=== PATIENT | female | born 1965 | race Caucasian/White ===

== ENCOUNTER 2018-01-11 10:45 | Outpatient (REF) | payer MEDICAID, SELFPAY ==
--- NOTE | 2018-01-11 10:45 | ENDOMET_PTH ---
PATIENT: Ca Hopkins LOC: [facility] U#:[id number] AGE/SX: 52/F ROOM: RE01/11/[address]: Bari Ontiveros : 1965 BED: DIS: 01/11/2018 SPEC #: [id number] RECD: 01/12/18 12:44 STATUS: GARRY REQ #: [id number] MARY: 01/11/18 10:[address]: Bari Ontiveros DEPT: Surgical Specimen RECD BY: Meghann Reaves Tissues: 1 - ENDOMETRIUM BX/LEIF Procedures: GROSS AND MICRO LEVEL 4 Comments: [id number]
[2018-01-13 14:22] LABS: Chlamydia Result Negative; GC Result Negative; Specimen Description CERVIX
== END 2018-01-11 11:05 ==
LOC: NCHCN 10:45
PROVIDERS: PCP Family Medicine; Visit Provider Family Medicine
DX: N93.9 Abnormal uterine and vaginal bleeding, unspecified (principal); Z11.3 Encounter for screening for infections with a predominantly sexual mode of transmission; R82.90 Unspecified abnormal findings in urine; N85.8 Other specified noninflammatory disorders of uterus
CPT/HCPCS: 87077; 87491; 87591; 88305; 87086; 87186

== ENCOUNTER 2018-07-25 06:14 | Day surgery (SDC) | payer MEDICAID, SELFPAY ==
--- NOTE | 2018-07-25 06:29 | W.COLOREPORT ---
Date of service: 07/25/18 Time of Service: 07:20 Colonoscopy Report Date of procedure: 07/25/18 Pre-op diagnosis general: Colon Cancer Screening Post-op diagnosis procedure note: other (Colorectal polyp) Procedure: Colonoscopy with polypectomy by snare Surgeon: Pily Herr Anesthesia proc note operative: other (General/ ASA 2/Prasanna Keith CRNA) Estimated blood loss (mL): 3 Pathology: other (Transverse polyp) Complications: None Disposition: same day Indications: Mrs. Hopkins is a pleasant 52 year old female who was seen in the office for a screening colonoscopy. She has no family history of colon cancer. Risks, benefits and complications have been reviewed. Complications include but are not limited to bleeding, pain, perforation, missed small lesion/polyp, sore throat, aspiration and adverse reaction to the medications. Questions were entertained and answered to their satisfaction and they wished to proceed. No guarantees were given or implied. Prep: Miralax/Dulcolax Procedure Start Time: 07:20 Procedure End Time: 07:49 Retraction Time: 16 minutes Findings: One sessile polyp in the transverse colon. Retained fiber in her right colon which made it challenging to see the cecum. Irrigation was used to see the cecum Procedure Description: After informed consent was obtained the patient was taken to the procedure room and placed in a left decubitous position. Monitors were applied and a time out was done. The patients name, date of , procedure, allergies to medications and metal in their body was reviewed. The patient was then sedated. Once sedated and comfortable a rectal exam was done. External exam was normal. Internal exam revealed a normal sphincter tone and no palpable masses. The scope was then introduced and retro-flexed. No internal hemorrhoids were identified. There were no polyps or masses in the rectum. The scope was then advanced to the cecum without difficulty. The TI and appendiceal orifice were identified. The prep was adequate except for retained fiber in the cecum. The scope was then slowly retracted over 16 minutes back into the rectum. Polyps were removed with a cold snare in the Transverse colon. The scope was removed and the patient was woken up and taken back to Same day surgery in stable condition. The patient tolerated the procedure well and there were no immediate complications. Follow up: The patient should follow up in 3-5 years unless they develop changes in bowel habits or other new gastrointestinal complaints.
[2018-07-25 06:33] VITALS: BP 160/87; PULSE 90; RESP 18; TEMP 37.1; O2SAT 98
--- NOTE | 2018-07-25 06:33 | W.PM.DSUDISC ---
Discharge Plan Disposition Patient Disposition: HOME Condition: Good Discharge Details Reason For Visit: Colon Cancer screening Attending Provider: Pily Herr Primary Care Provider: Bari Ontiveros Home Meds and New Rx's Prescriptions: Continued ibuprofen 200 MG capsule 200 mg PO PRN RF: 0 simvastatin 40 MG tablet 40 mg PO DAILY RF: 0 naproxen sodium [Aleve] 220 MG tablet 220 mg PO PRN Qty: 2 RF: 0 Women's Complex Tablet 1 tab PO DAILY RF: 0 Discontinued polyethylene glycol 3350 17 gram/dose powder 238 g PO ONCE Qty: 238 RF: 0 bisacodyl [Dulcolax (bisacodyl)] 5 mg tablet,delayed release (DR/EC) 5 mg PO ONCE Qty: 4 RF: 0 Discharge Instructions Instructions: Colonoscopy (DC), Colorectal Polyps (DC) Additional Instructions: Findings: 1 polyp Follow up:3-5 years Please call if you develop: fevers >101.5 Nausea or Vomiting Abdominal pain that is not transient DAY SURGERY UNIT POST COLONOSCOPY INSTRUCTIONS 1. Because there will be medication in your system for the next 24 hours, you may feel a little sleepy. Your coordination will be affected. Therefore: a. Do not drive or operate dangerous equipment for 24 hours. b. Do not drink alcohol beverages for 24 hours (not even beer). c. Plan to go home and rest for the day. 2. Generally there are no restrictions on your activity after a day or so has gone by, but you may feel a bit fatigued for a few days. 3 After you arrive home you may have a light meal and return to a normal diet as you can tolerate it without feeling sick to your stomach. 4. After surgery, you may feel pain or discomfort. This should be only transient, but if it persists please contact your doctor. 5. If there are any questions regarding the findings of your procedure, please feel free to contact your doctor. 6. If you are unable to contact your doctor with a problem, contact the hospital at [phone]. 7. Continue all your regular medications unless directed otherwise. I understand the above instructions and have no questions. Signature of Patient or Responsible Adult Escort Date/Time Name of Responsible Adult Escort Signature of Nurse Date/Time Activity:: Activity as Tolerated Diet:: As Tolerated Discharge Orders Discharge Orders: Discharge Order (Routine); Ordered 07/25/18 Ordered By: Pily Herr DS: Diagnosis Discharge Diagnosis (1) S/P colonoscopy: Status: Acute (2) Colorectal polyps: Status: Acute
[2018-07-25] MEDS: Lactated Ringers 1,000 ML 80 ML IV ×2 (07:02→08:00)
--- NOTE | 2018-07-25 07:41 | BOWEL_PTH ---
PATIENT: Ca Hopkins LOC: [facility] U#:[id number] AGE/SX: 52/F ROOM: RE07/25/[address]: Pily Herr MD : 1965 BED: DIS: 07/25/2018 SPEC #: [id number] RECD: 07/25/18 12:32 STATUS: GARRY REQ #: [id number] MARY: 07/25/18 07:[address]: Pily Herr DEPT: Surgical Specimen RECD BY: Meghann Reaves ENTERED: 07/25/18 12:32 SP TYPE: Bowel OTHR DR: Bari Ontiveros Tissues: 1 - BIOPSY BOWEL Procedures: GROSS AND MICRO LEVEL 4 Comments: [id number]
[2018-07-25 08:13] VITALS: O2SAT 99
[2018-07-25 08:20] VITALS: BP 136/89; PULSE 84; RESP 18; TEMP 36.7; O2SAT 100
== END 2018-07-25 08:49 | disposition home or self-care (01) ==
PROVIDERS: PCP Family Medicine; Visit Provider Surgery
PROC: 0DJD8ZZ Inspection of Lower Intestinal Tract, Via Natural or Artificial Opening Endoscopic (ICD-10-PCS; CPT 45378; principal; 2018-07-25 07:30)
DX: Z12.11 Encounter for screening for malignant neoplasm of colon (principal)
CPT/HCPCS: 45385; 88305

== ENCOUNTER 2022-01-27 12:48 | Outpatient (REF) | payer MEDICAID, SELFPAY ==
--- NOTE | 2022-01-27 12:00 | PAPFT_PTH ---
PAT[facility]: Ca Hopkins [id number]GE/SX: 56/F ROOM: RE01/27/[address]: ERI RICHARDS : 1965 BED: DIS: 01/27/2022 SPEC #: [id number] RECD: 01/27/22 17:48 STATUS: GARRY REQ #: [id number] MARY: 01/27/22 12:[address]: Eri Richards DEPT: [facility] Cytology RECD BY: Meghann Reaves ENTERED: 01/27/22 17:48 SP TYPE: PAPFT OTHR DR: Bari Ontiveros Tissues: 1 - CX/ENDOCX FOR PAP SMEARS Procedures: PAP THIN PREP/U[facility] Screening HPV DNA PROBE Comments: [id number]
[2022-01-27 15:16] LABS: ALT 30 U/L (14-59); AST 33 U/L (15-37); Albumin 4.1 g/dL (3.4-5.0); Alkaline Phosphatase 115 U/L (46-116); Anion Gap 12.2 mmol/L (3-11); BUN 16 mg/dL (7-18); Bilirubin, Total 0.2 mg/dL (0.2-1.0); CO2 22.8 mmol/L (21.0-32.0); CREATININE 1.1 mg/dL (0.55-1.02); Calcium 9.6 mg/dL (8.5-10.1); Calculated LDL 140 mg/dL (<100); Chloride 104 mmol/L (98-107); Cholesterol 287 mg/dL (<200); Estimated GFR 59.71 (mL/min/1.73m2); Glucose 96 mg/dL (74-106); HDL Cholesterol 90 mg/dL (40-60); Potassium 4.5 mmol/L (3.5-5.1); Sodium 139 mmol/L (136-145); Total Protein 7.6 g/dL (6.4-8.2); Triglyceride 289 mg/dL (<150)
== END 2022-01-27 12:49 | disposition home or self-care (01) ==
LOC: NCHCN 12:48
PROVIDERS: PCP Family Medicine; Visit Provider Nurse Practitioner Family
DX: E78.5 Hyperlipidemia, unspecified (principal); R10.2 Pelvic and perineal pain; Z12.4 Encounter for screening for malignant neoplasm of cervix; Z11.51 Encounter for screening for human papillomavirus (HPV)
CPT/HCPCS: 80053; 80061; 88142; 87624

== ENCOUNTER → 2022-02-23 02:27 | Outpatient (CLI) | payer MEDICAID, SELFPAY ==
--- NOTE | 2022-02-23 12:00 | DI.MAMMO_ITS ---
Exam(s) MAMMO SCREENING EXAM: MAMMO SCREENING CLINICAL HISTORY: SCREENING, Z12.39 TECHNIQUE: Bilateral full field digital CC and MLO mammographic images were obtained with 3D tomosyn thesis and utilizing computer aided detection (CAD). COMPARISON: Available for comparison. FINDINGS: Masses/Architectural Distortion: None seen. Microcalcifications: No suspicious pleomorphic-type are seen. Skin Thickening/Nipple Retraction: None. IMPRESSION: 1. No significant interval change with no specific features of malignancy noted. 2. Unless there is more urgent need, screening mammography is recommended, as per [employer] guidelines. BI-RADS Category 1 - Negative Breast Density - Category B - Scattered areas of fibroglandular density Breast density category C or D implies that the patient has dense breast tissue. Dense breast tissue is very common and is not abnormal but dense breast tissue can make it harder to find cancer on a ma mmogram. Also, dense breast tissue may increase their breast cancer risk. This information about the result of the mammogram report was provided to the patient to raise their awareness. Use this report when you speak with the patient about their risks for breast cancer, which includes their family hist ory. At that time, you may recommend for more screening tests (Ultrasound or MRI) as they might be us eful based on their risk. A negative radiographic report should not delay biopsy if a dominant or clinically suspicious mass is present. Up to ten percent of cancers are not identified on mammography. A negative report may reinforce clinical impression. Adenosis and dense breasts may obscure an underlying neoplasm. False positive reports average 6 to 10%. Patient will receive a letter notifying them of these results.
== END ==
PROVIDERS: PCP Family Medicine; Visit Provider Nurse Practitioner Family
DX: Z12.31 Encounter for screening mammogram for malignant neoplasm of breast (principal)
CPT/HCPCS: 77063; 77067